=== PATIENT | female | born 1995 | race Caucasian/White ===

== ENCOUNTER 2020-07-31 19:09 | Emergency (ER) | payer SELFPAY ==
[2020-07-31 19:18] VITALS: BP 129/83; PULSE 92; RESP 16; TEMP 36.4; O2SAT 100
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
--- NOTE | 2020-07-31 19:56 | NUR.NOTE ---
Nursing Note: referal to surgery 07/31/20
[2020-07-31] MEDS: Lidocaine 2% Jelly 6 ML SYR TP (19:59)
[2020-07-31] MEDS: Acetaminophen 500 MG TAB 1000 MG PO (19:59)
[2020-07-31] MEDS: Ibuprofen 600 MG TAB PO (19:59)
[2020-07-31] MEDS: Bacitracin 30 GM TUBE TP (20:00)
== END 2020-07-31 20:15 | disposition home or self-care (01) ==
LOC: ER 22:26
PROVIDERS: Emergency Provider Emergency Medicine; PCP Family Medicine
DX: T23.232A Burn of second degree of multiple left fingers (nail), not including thumb, initial encounter (principal); T23.221A Burn of second degree of single right finger (nail) except thumb, initial encounter; X10.2XXA Contact with fats and cooking oils, initial encounter; T31.0 Burns involving less than 10% of body surface
CPT/HCPCS: 99283

== ENCOUNTER 2021-01-11 08:38 | Outpatient (CLI) | payer SELFPAY ==
[2021-01-12 17:07] LABS: COVID-19 RT-PCR UVMMC Result Negative (Negative)
== END 2021-01-11 08:39 | disposition home or self-care (01) ==
LOC: LBO 08:39
PROVIDERS: PCP Family Medicine; Visit Provider Family Medicine
DX: Z20.822 Contact with and (suspected) exposure to COVID-19 (principal)
CPT/HCPCS: U0003

== ENCOUNTER 2021-02-20 09:46 | Outpatient (CLI) | payer SELFPAY ==
[2021-02-21 14:22] LABS: COVID-19 RT-PCR UVMMC Result Negative (Negative)
== END 2021-02-20 09:47 | disposition home or self-care (01) ==
PROVIDERS: PCP Family Medicine; Visit Provider Family Medicine
DX: Z20.822 Contact with and (suspected) exposure to COVID-19 (principal)
CPT/HCPCS: U0003

== ENCOUNTER 2021-02-25 03:25 | Outpatient (CLI) | payer SELFPAY ==
[2021-02-26 13:45] LABS: COVID-19 RT-PCR UVMMC Result Negative (Negative)
== END 2021-02-25 03:26 | disposition home or self-care (01) ==
LOC: LBO 03:25
PROVIDERS: PCP Family Medicine; Visit Provider Family Medicine
DX: Z20.822 Contact with and (suspected) exposure to COVID-19 (principal)
CPT/HCPCS: U0003